=== PATIENT | female | born 1945 ===

== ENCOUNTER 2021-04-08 10:44 | Inpatient (IN) | payer OTHER ==
[~2021-04-08] VITALS: Ht 149.9 cm; Wt 53.1 kg
[2021-04-14] MEDS ORDERED: SINGULAIR10 MG PO (15:38)
[2021-04-14] MEDS ORDERED: NORVASC5 MG PO (15:38)
[2021-04-14] MEDS ORDERED: COZAAR100 MG PO (15:38)
[2021-04-14] MEDS ORDERED: LIPITOR40 MG PO (15:38)
[2021-04-14] MEDS ORDERED: ADULT LOW DOSE81 M1 PO (15:39)
[2021-04-14] MEDS ORDERED: PROAIR RESPICL90 MCG IH (15:39)
[2021-04-19] MEDS ORDERED: PATADAY5 ML (07:52)
[2021-04-19] MEDS ORDERED: FLONASE16 GM (07:52)
[2021-04-19] MEDS ORDERED: PRESERVISION A1 EAC1 (07:52)
[2021-04-19] MEDS ORDERED: SYMBICORT 16010.2 GM (07:52)
== END 2021-04-22 18:17 | disposition home or self-care (01) | DRG 329 ==
LOC: SURG 04-19 05:55 → O/R 04-19 05:55 → SURH 04-19 07:00 → SURG 04-19 14:49
PROVIDERS: ADMIT Colon & Rectal Surgery; ATTEND Colon & Rectal Surgery
PROC: 0DBP4ZZ Excision of Rectum, Percutaneous Endoscopic Approach (ICD-10-PCS; 2021-04-19)
PROC: 0DJD8ZZ Inspection of Lower Intestinal Tract, Via Natural or Artificial Opening Endoscopic (ICD-10-PCS; 2021-04-19)
PROC: 4A1BXSH Monitoring of Gastrointestinal Vascular Perfusion using Indocyanine Green Dye, External Approach (ICD-10-PCS; 2021-04-19)
PROC: 0DTN4ZZ Resection of Sigmoid Colon, Percutaneous Endoscopic Approach (ICD-10-PCS; principal; 2021-04-19 07:00)
DX: K57.20 Diverticulitis of large intestine with perforation and abscess without bleeding (principal); K65.8 Other peritonitis; R59.0 Localized enlarged lymph nodes; R10.32 Left lower quadrant pain; I10 Essential (primary) hypertension